=== PATIENT | female | born 1980 | race Caucasian/White ===

== ENCOUNTER 2022-05-09 22:32 | Emergency (ER) | payer OTHER, SELFPAY ==
[2022-05-09 23:02] VITALS: BP 100/60; PULSE 74; RESP 15; TEMP 36.7; O2SAT 95
[2022-05-09 23:12] VITALS: BP 112/89; PULSE 80; RESP 16; O2SAT 99; BMI 37.8
[2022-05-10] VITALS: BP 100/55; PULSE 86; TEMP 36.9; O2SAT 95
--- NOTE | 2022-05-10 01:45 | ED.GENADULT ---
HPI - General Adult General Chief complaint: Psychiatric Symptoms Stated complaint: CRISIS EVAL Time Seen by Provider: 05/10/22 00:48 Limitations: no limitations History of Present Illness HPI narrative: This is a 42-year-old female who states that very good friend of hers, with whom she was in a rack, killed himself yesterday and the patient was upset, and drank heavily this evening. She felt unsafe because of the amount she had drunk. She denies being suicidal per se, states she did briefly have the thought that she would like to be with her friend. She admits few episodes of vomiting. She denies any other ingestion. She does have mild headache. She denies any prior history of suicide attempt. She does have depression and anxiety. Related Data Allergies Allergy/AdvReac Type Severity Reaction Status Date / Time No Known Allergies Allergy Verified 05/10/22 01:49 Review of Systems Review of Systems: As per HPI Constitutional: Constitutional: Reports headache(s) ENT: Reports headache(s) Gastrointestinal: Gastrointestinal: Reports nausea Neurologic: Reports headache(s) Psychiatric: Psychiatric: Reports anxiety, Denies homicidal ideation and Denies suicidal ideation PMFSH Social History Social History Smoked in Last 30 Days: No Use of substances other than those prescribed or required for medical reasons: No Advance Directives: No Patient : No Physical Exam ED Vital Signs: Vital Signs - 24 hr 05/09/22 23:02 05/09/22 23:12 05/10/22 00:00 Temperature 98.1 F 98.4 F Pulse Rate 74 80 86 Respiratory Rate 15 16 Blood Pressure 100/60 112/89 100/55 L Pulse Oximetry 95 99 95 Oxygen Delivery Method Room Air Room Air Room Air BMI result Body Mass Index 37.8 Const Other: Patient initially lying on side, is able to get herself to sit up straight on a edge of the gurney, speech is not slurred. General: no acute distress Orientation/consciousness: patient oriented x3 HENMT Head: Yes normal to inspection General nose exam: Normal external nose present Mouth: moist mucous membranes Throat: Yes posterior oropharynx normal, Yes tonsils normal and Yes uvula midline Eyes Eyelids: Yes eyelids normal Conjunctivae: conjunctivae normal Pupils: Equal, round and reactive pupils present Neck Neck: Yes supple Resp Effort & Inspection: normal respiratory effort Auscultation: clear to auscultation bilaterally Cardio Rate: regular rate Rhythm: regular rhythm Heart sounds: S1 normal heart sound present, S2 normal heart sound present, no gallops, no murmurs and no rubs GI Inspection: No distended Palpation (GI): Soft to palpation and nontender Auscultation: normal bowel sounds Skin General skin exam: other (Warm and dry) Neuro General: patient oriented x3 and CN's II-XI intact bilaterally Cranial nerves: Yes Equal, round and reactive pupils present Extrem General: Yes no pedal edema Psych Affect: normal affect Attitude: cooperative Medical Decision Making MDM Narrative Medical decision making narrative: Patient re-evaluated at 05:00. Patient states she was here because she thought she might have consumed a toxic dose of alcohol but now states she just wants to go home. She denies being suicidal. Her symptoms are somewhat improved after ondansetron and lorazepam. Patient is safe for outpatient follow-up Discharge Plan Discharge Clinical Impression: Acute alcohol intoxication Patient Disposition: Home, Self-Care Instructions: Alcohol Intoxication (ED) Additional Instructions: Follow-up with her primary care physician. Return for any new or worsened symptoms such as feeling that he might want to hurt herself, or feeling unsafe.
[2022-05-10] MEDS: Acetaminophen 325 MG TABLET 650 MG PO (02:16)
[2022-05-10] MEDS: Ondansetron ODT 4 MG TAB.RAPDIS TRANSLINGU (02:17)
--- NOTE | 2022-05-10 02:18 | PC.NURSE ---
pt alert, Medicated per Mar. Will continue to monitor.
[2022-05-10 05:23] VITALS: BP 112/68; PULSE 73; RESP 15; TEMP 36.5; O2SAT 98
--- NOTE | 2022-05-10 05:26 | PC.NURSE ---
Pt a&o, no sob or chest pain. pt able to ambulate with a steady gait. Reviewed discharge instructions with patient. Pt verbalized understanding. Notified GUNJAN López.
== END 2022-05-10 05:29 | disposition home or self-care (01) ==
PROVIDERS: Emergency Provider Emergency Medicine; PCP Nurse Practitioner Gerontology
DX: F10.920 Alcohol use, unspecified with intoxication, uncomplicated (principal); Y90.9 Presence of alcohol in blood, level not specified; F32.A Depression, unspecified; F41.9 Anxiety disorder, unspecified; R51.9 Headache, unspecified
CPT/HCPCS: 99284; 99285

== ENCOUNTER → 2022-09-13 19:30 | Outpatient (REF) | payer OTHER, SELFPAY | LOC: HO.SL 19:30 | PROVIDERS: PCP Nurse Practitioner Gerontology; Visit Provider Psychiatry & Neurology Psychiatry | DX: G47.33 Obstructive sleep apnea (adult) (pediatric) (principal); G47.52 REM sleep behavior disorder | CPT/HCPCS: 95810 ==